=== PATIENT | female | born 1990 | race Caucasian/White ===

== ENCOUNTER 2022-03-13 18:41 | Outpatient (REF) | payer BC, SELFPAY ==
[2022-03-13 21:37] LABS: Abs Immature Grans 0.03 10^3/uL (0.0-0.06); Absolute Basophil Count 0.01 10^3/uL (0.0-0.2); Absolute Eosinophil Count 0.02 10^3/uL (0.0-0.7); Absolute Lymphocyte Count 0.67 10^3/uL (1.2-3.4); Absolute Monocyte Count 0.38 10^3/uL (0.1-0.8); Basophils % 0.1; Eosinophils % 0.2; HCT 45.9 % (36.0-46.0); HGB 15.3 g/dL (11.2-15.7); Immature Grans % 0.3; Lymphocytes % 6.7; MCH 29.5 pg (27.0-33.0); MCHC 33.3 % (32.0-36.0); MCV 88 fL (80-95); MPV 10.8 fL (8.0-11.0); Monocytes % 3.8; Neutrophils % 88.9; Platelet Count 263 10^3/uL (130-400); RBC 5.19 10^6/uL (3.93-5.22); RDW 12.4 % (11.7-14.6); RDW-SD 40.2 fL; WBC 10.01 10^3/uL (4.4-10.8)
[2022-03-13 21:57] LABS: ALT 34 U/L (14-59); AST 27 U/L (15-37); Albumin 4.4 g/dL (3.4-5.0); Alkaline Phosphatase 96 U/L (46-116); Anion Gap 7.6 mmol/L (3-11); BUN 12 mg/dL (7-18); Bilirubin, Total 0.7 mg/dL (0.2-1.0); CO2 31.4 mmol/L (21.0-32.0); CREATININE 0.9 mg/dL (0.55-1.02); Calcium 9.6 mg/dL (8.5-10.1); Chloride 103 mmol/L (98-107); Estimated GFR 86.57 (mL/min/1.73m2); Glucose 89 mg/dL (74-106); Lipase 20 U/L (16-77); Potassium 4.1 mmol/L (3.5-5.1); Sodium 142 mmol/L (136-145); Total Protein 7.4 g/dL (6.4-8.2)
== END 2022-03-13 18:42 | disposition home or self-care (01) ==
LOC: LBN 18:41
PROVIDERS: Visit Provider Physician Assistant Medical
DX: E86.0 Dehydration (principal); R19.7 Diarrhea, unspecified; R11.2 Nausea with vomiting, unspecified; R10.11 Right upper quadrant pain
CPT/HCPCS: 80053; 83690; 85025

== ENCOUNTER 2022-03-22 13:27 | Outpatient (REF) | payer BC, SELFPAY ==
[2022-03-22 14:30] LABS: C Diff PCR Negative (Negative)
[2022-03-23 11:08] LABS: Campylobacter PCR Negative (Negative); Salmonella PCR Negative (Negative); Shiga Toxin PCR Negative (Negative); Shigella/Enteroinvasive Ecoli Negative (Negative)
== END 2022-03-22 13:28 | disposition home or self-care (01) ==
LOC: LBN 13:27
PROVIDERS: Visit Provider Physician Assistant Medical
DX: R11.2 Nausea with vomiting, unspecified (principal); R19.7 Diarrhea, unspecified; R10.11 Right upper quadrant pain
CPT/HCPCS: 87329; 87493; 87505; 87177

== ENCOUNTER 2022-04-12 01:06 | Outpatient (CLI) | payer BC, SELFPAY ==
--- NOTE | 2022-04-12 | DI.MRI_ITS ---
Exam(s) MR ABDOMEN WO EXAM: MR ABDOMEN WO CLINICAL HISTORY: ? CBD STONE,NAUSEA,VOMITING,DIARRHEA,GI HEMORRHAGE,ABNL FINDINGS ON IMAGING TECHNIQUE: Multiplanar multisequence MRI was performed with both pre and post contrast infused seque nces. Contrast injected sequences were performed following IV injection of cc of Dotarem. COMPARISON: Recent ultrasound reviewed (03/15/2022). FINDINGS: VISUALIZED LUNG BASES: No pleural effusions evident. There is no ascites evident. LIVER: Liver size normal. There are no focal hepatic lesions evident. No obvious dilated intrahepat ic ducts. BILIARY: There is no obvious gallbladder pathology. The CBD is not dilated.No dilated intrahepatic d ucts. No obvious filling defects seen within the nondilated CBD. PANCREAS: There is no evidence of pancreatic mass nor dilatation of the pancreatic duct. SPLEEN: Spleen size mildly prominent. Cephalocaudal measurement 14.3 cm.. No intrasplenic lesions e vident.Splenic and portal veins are patent ADRENALS: There are no significant adrenal masses. KIDNEYS: No solid renal masses. No hydronephrosis.No cysts evident. ABDOMINAL AORTA: Not enlarged and there is no significant para-aortic adenopathy. ANTERIOR ABDOMINAL WALL/GI: There is no evidence of significant anterior abdominal wall hernia in the field of view of this study.Is no evidence of obvious bowel obstruction. OSSEOUS: There are no lytic osseous lesions in the field of view of this study. IMPRESSION: 1. No gallstones. No gallbladder wall edema. No dilatation of the biliary tree, both intra and extr ahepatic. 2. Mild splenomegaly. No intrasplenic lesions. DATA REPOSITORY:
--- NOTE | 2022-04-12 15:18 | DI.VRAD_ITS ---
PROCEDURE INFORMATION: Exam: MR Abdomen Without Contrast Exam date and time: 04/12/2022 8:33 AM Age: 31 years old Clinical indication: Nausea and vomiting and other: Diarrhea TECHNIQUE: Imaging protocol: Magnetic resonance imaging of the abdomen without contrast. COMPARISON: US ABDOMEN LIMITED 03/15/2022 9:02 AM FINDINGS: Lungs: The visualized lung bases are unremarkable. Heart: The visualized portions of the heart and pericardium are within normal limits. Liver: The liver is within normal limits. There is no evidence of intrahepatic or extrahepatic biliary ductal dilatation. Gallbladder and bile ducts: The gallbladder is unremarkable. Pancreas: The pancreas is within normal limits. Spleen: The spleen is enlarged measuring 14.1 cm in length. Adrenal glands: The adrenal glands are unremarkable. Kidneys and ureters: The kidneys are within normal limits. Stomach and bowel: Visualized stomach and intestines are unremarkable. Intraperitoneal space: No free fluid. Vasculature: The aorta is unremarkable. Bones/joints: Unremarkable. Soft tissues: Unremarkable. IMPRESSION: Splenomegaly. Dictated and Authenticated by: Jefry Camargo MD. Ordering:[id number] Grier MD
== END 2022-04-12 01:26 ==
LOC: DI 01:06
PROVIDERS: Visit Provider Internal Medicine Gastroenterology
DX: R19.7 Diarrhea, unspecified (principal); R11.2 Nausea with vomiting, unspecified; R16.1 Splenomegaly, not elsewhere classified; K92.2 Gastrointestinal hemorrhage, unspecified; R93.2 Abnormal findings on diagnostic imaging of liver and biliary tract
CPT/HCPCS: 74181